=== PATIENT | male | born 1930 | race Caucasian/White ===

== ENCOUNTER 2018-08-31 15:58 | Emergency (ER) | payer MEDICARE, OTHER ==
[~2018-08-31] VITALS: Ht 177.8 cm; Wt 70.0 kg
[~2018-08-31 15:58] MED LIST: ACID REDUCER10 M1 PO; AMLODIPINE5 MG PO; ARICEPT ODT10 MG PO; BLOOD PRESSURE MED; COREG25 MG PO; DONEPEZIL5 MG PO; GLUCOSAMINE500 M1 PO; MEDDOSEPAK PO; NAPROXEN375 MG PO; ONDANSETRON4 MG PO; ZOSTAVAX IM; [UNRECOGNIZED DRUG - OTHER]
[2018-08-31 16:37] LABS: GFR > 60 ML/MIN (>=60 (CALC)); GFR FOR AFR.AMER. > 60 ML/MIN (>=60 (CALC))
[2018-08-31 17:05] LABS: HEMATOCRIT 46.2 % (39.0-50.0); HEMOGLOBIN 15.4 g/dl (14.0-18.0); IMMATURE GRANULOCYTES 0.3 % (0.0-5.0); MEAN CELL VOLUME 94.1 fL CALC (80.0-100.0); MEAN CORPUSCULAR HGB 31.4 pG CALC (26.0-32.0); MEAN CORPUSCULAR HGB CONC 33.3 g/L CALC (32.0-36.0); NEUT# 5.76 thou/uL (1.82-7.42); RED BLOOD COUNT 4.91 mill/uL (4.70-6.10)
[2018-08-31 17:10] LABS: ALBUMIN 4.6 g/dL (3.2-5.0); ALKALINE PHOSPHATASE 83 u/l (38-126); ANION GAP 15 (6-22 (CALC)); BUN 17 mg/dL (8-23); BUN/CREATININE RATIO 19 (12-20 (CALC)); CARBON DIOXIDE 23 mmol/l (22-30); CHLORIDE 106 mmol/l (95-108); CREATININE 0.9 mg/dL (0.7-1.3); GFR > 60 ML/MIN (>=60 (CALC)); GFR FOR AFR.AMER. > 60 ML/MIN (>=60 (CALC)); POTASSIUM 3.5 mmol/l (3.5-5.1); PROTHROMBIN TIME 10.7 SECONDS (9.0-12.5); SGOT/AST 26 u/l (19-48); SODIUM 140 mmol/l (137-146); TOTAL PROTEIN 7.1 g/dL (6.3-8.2)
[2018-08-31 17:11] LABS: BILIRUBIN, TOTAL 2.6 mg/dL (0.0-1.4)
[2018-08-31 17:22] LABS: MYOGLOBIN 50 ng/mL (0 - 121)
[2018-08-31 19:36] VITALS: BP 158/70
== END 2018-08-31 19:50 | disposition short-term general hospital (02) ==
LOC: ED 15:58
PROVIDERS: Emergency Medicine
DX: I63.9 Cerebral infarction, unspecified (principal); I10 Essential (primary) hypertension; R47.01 Aphasia; R47.1 Dysarthria and anarthria; R29.810 Facial weakness; R47.81 Slurred speech; R29.703 NIHSS score 3; Z86.73 Personal history of transient ischemic attack (TIA), and cerebral infarction without residual deficits; R94.31 Abnormal electrocardiogram [ECG] [EKG]
CPT/HCPCS: Q9967

== ENCOUNTER 2019-02-07 22:04 | Emergency (ER) | payer MEDICARE, OTHER ==
[~2019-02-07] VITALS: Ht 177.8 cm; Wt 70.5 kg
[2019-02-07 22:30] VITALS: BP 147/85
== END 2019-02-07 22:55 | disposition home or self-care (01) ==
LOC: ED 22:04
DX: I10 Essential (primary) hypertension (principal); Z86.73 Personal history of transient ischemic attack (TIA), and cerebral infarction without residual deficits

== ENCOUNTER 2019-04-02 16:01 | Emergency (ER) | payer MEDICARE, OTHER ==
[~2019-04-02] VITALS: Ht 177.8 cm; Wt 79.0 kg
[2019-04-02] MEDS ORDERED: AMOXICILLIN875 MG PO (17:15)
[2019-04-02] MEDS ORDERED: TAM75CAP PO (17:15)
[2019-04-02 17:50] VITALS: BP 137/68
== END 2019-04-02 17:50 | disposition home or self-care (01) ==
LOC: ED 16:01
DX: J10.1 Influenza due to other identified influenza virus with other respiratory manifestations (principal); I10 Essential (primary) hypertension; F03.90 Unspecified dementia, unspecified severity, without behavioral disturbance, psychotic disturbance, mood disturbance, and anxiety; Z86.73 Personal history of transient ischemic attack (TIA), and cerebral infarction without residual deficits

== ENCOUNTER 2019-07-01 16:50 | Observation (INO) | payer MEDICARE, OTHER ==
[~2019-07-01] VITALS: Ht 177.8 cm; Wt 77.0 kg
[~2019-07-01 16:50] MED LIST changes: +AMOXICILLIN875 MG PO; +TAM75CAP PO
[2019-07-01 17:22] VITALS: BP 125/57
--- NOTE | 2019-07-01 17:30 | NUR ---
DIRECT ADMIT ARRIVED VIA WHEELCHAIR ACCOMPANIED BY SPOUSE AND DAUGHTER, PATIENT ALERT WITH CONFUSION, A/OX2, PATIENT NO C/O PAIN, NO S/S RESP DISTRESS, PATIENT ON ROOM AIR, PATIENT VERY HARD OF HEARING, PATIENT INCONTINENT OF BLADDER AND BOWELS, PATIENT GIVEN PERICARE, PATIENT SKIN INTACT, PATIENT HAD LARGE BOWEL MOVEMENT, PATIENT HAD FALL IN SHOWER PER SPOUSE, PATIENT ON MONITOR PATIENT HEART NORMAL SINUS, WILL CONTINUE TO MONITOR, CALL LIGHT WITHIN REACH
[2019-07-01] MEDS ORDERED: AMLODIPINE BESYL5 MG PO (17:53)
[2019-07-01] MEDS ORDERED: CARVEDILOL6.25 MG PO (17:53)
[2019-07-01] MEDS ORDERED: LISINOP/HCTZ1 TA2 PO (17:54)
[2019-07-01 18:57] LABS: HEMATOCRIT 43.5 % (39.0-50.0); HEMOGLOBIN 14.5 g/dl (14.0-18.0); IMMATURE GRANULOCYTES 0.3 % (0.0-5.0); MEAN CELL VOLUME 93.1 fL CALC (80.0-100.0); MEAN CORPUSCULAR HGB CONC 33.3 g/L CALC (32.0-36.0); NEUT# 4.61 thou/uL (1.82-7.42); RED BLOOD COUNT 4.67 mill/uL (4.70-6.10); RED CELL DISTRI WIDTH 14.1 % (11.5-15.5)
[2019-07-01 18:58] LABS: URINE BILIRUBIN - DIPSTICK NEGATIVE (NEGATIVE); URINE BLOOD DIPSTICK NEGATIVE (NEGATIVE); URINE COLOR YELLOW; URINE GLUCOSE - DIPSTICK NEGATIVE (NEGATIVE); URINE KETONE NEGATIVE (NEGATIVE); URINE LEUK ESTERASE NEGATIVE (NEGATIVE); URINE NITRITE - DIPSTICK NEGATIVE (Negative); URINE PH 5.5 (4.5-8.0); URINE PROTEIN - DIPSTICK TRACE mg/dL (NEG-TRACE); URINE SPECIFIC GRAVITY >=1.030; URINE UROBILINOGEN - DIPSTICK 0.2 E.U./dL (0.2)
--- NOTE | 2019-07-01 19:00 | NUR ---
RECEIEVED REPORT FROM NURSE LUIS ARMANDO, PATIENT CURRENTLY RESTING IN BED, DENIES PAIN OR DISXCOMFORTS AT THIS TIME, CALL LIGHT AT REACH, BED ALARM IN PLACE
[2019-07-01 19:13] LABS: ALBUMIN 4.4 g/dL (3.2-5.0); ALKALINE PHOSPHATASE 100 u/l (38-126); ANION GAP 13 (6-22 (CALC)); BUN 33 mg/dL (8-23); BUN/CREATININE RATIO 34 (12-20 (CALC)); CARBON DIOXIDE 23 mmol/l (22-30); CHLORIDE 106 mmol/l (95-108); GFR > 60 ML/MIN (>=60 (CALC)); GFR FOR AFR.AMER. > 60 ML/MIN (>=60 (CALC)); POTASSIUM 3.7 mmol/l (3.5-5.1); SGOT/AST 28 u/l (19-48); SODIUM 139 mmol/l (137-146); TOTAL PROTEIN 7.4 g/dL (6.3-8.2)
[2019-07-01 19:16] LABS: BILIRUBIN, TOTAL 1.5 mg/dL (0.0-1.4)
[2019-07-01 19:27] VITALS: BP 121/66
--- NOTE | 2019-07-01 21:00 | NUR ---
PATIENT ALERT ORIENTED X 3, WITH SALINE LOCK ON RFA PATENT FLUSHES WELL, REMAINS ON TEL SB WITH IVCD 58, DENIES PAIN OR DISCOMFORTS AT THIS TIME, WITH EVEN UNLABORED BREATHING, ON BED ALARM CALL LIGHT AT REACH.
--- NOTE | 2019-07-01 23:53 | NUR ---
PATIENT APPEARS TO BE SLEEPING WITH EYES CLOSED, WITH EVEN UNLABORED BREATHING CALL LIGHT AT REACH.
[2019-07-02] VITALS (7 sets, daily range): BP systolic 96–141; BP diastolic 52–83
--- NOTE | 2019-07-02 00:18 | NUR ---
PATIENT REPOSITIONED, INCONTINENT CARE PROVIDED.
--- NOTE | 2019-07-02 04:04 | NUR ---
PATIENT APPEARS TO BE SLEEPING WITH EYES CLOSED, EVEN UNLABORED BREATHING CALL LIGHT AT REACH BED ALARM IN PLACE.
--- NOTE | 2019-07-02 07:00 | NUR ---
REPORT RECEIVED FROM ALEXA REYNOLDS;PT APPEARS TO BE SLEEPING IN SEMI FOWLERS POSITION;NO S/S OF DISTRESS NOTED;RESPIRATIONS EVEN AND UNLABORED ON RA;TELE MONITORING IN PLACE;IV FLUIDS INFUSING WITH EASE PER ORDER;ALL SAFETY PRECAUTIONS IN PLACE WITH BED ALARM ON FOR SAFETY AND BED IN THE LOWEST POSITION WITH CALL LIGHT IN REACH;WILL CONTINUE TO MONITOR
--- NOTE | 2019-07-02 08:45 | NUR ---
PT RESTING IN RECLINER,A&O X2;VS OBTAINED AND ASSESSMENT COMPLETED;PT DENIES ANY CURRENT PAIN OR DISCOMFORTS,PAIN SCALE AND REPORTING EDUCATED;RESPIRATIONS EVEN AND UNLABORED ON RA,CLEAR LUNG SOUNDS;ABDOMEN SOFT ON PALPATION AND ACTIVE IN ALL 4 QUADRANTS;STRONG PEDAL PULSES;SKIN INTACT;TELE MONITORING IN PLACE;#20G TO RFA INFUSING NS @ 75ML/HR,SITE APPEARS HEALTHY;PT DENIES ANY ADDITIONAL NEEDS AT THIS TIME AND IS ENCOURAGED TO CALL FOR ASSISTANCE IF NEEDED;FALL PRECAUTIONS IN PLACE WITH BED ALARM ON FOR SAFETY AND CALL LIGHT IN REACH;WILL CONTINUE TO MONITOR
--- NOTE | 2019-07-02 09:05 | NUR ---
AT BEDSIDE DISCUSSING POC.
--- NOTE | 2019-07-02 10:47 | NUR ---
OCCUPATIONAL THERAPY WORKING WITH PT.
--- NOTE | 2019-07-02 11:30 | NUR ---
PT REMAINS OOB RESTING IN RECLINER WATCHING TV;RESPIRATIONS EVEN AND UNLABORED ON RA;PT DENIES ANY CURRENT PAIN OR DISCOMFORTS;TELE MONITORING IN PLACE;IV FLUIDS CONTINUE AT 75ML/HR PER ORDER;ASSESSMENT REMAINS UNCHANGED AT THIS TIME;ENCOURAGED PT TO CALL FOR ASSISTANCE IF NEEDED;FALL PRECAUTIONS IN PLACE WITH BED ALARM ON FOR SAFETY;CALL LIGHT IN REACH;WILL CONTINUE TO MONITOR
--- NOTE | 2019-07-02 15:30 | NUR ---
PT RESTING IN SEMI FOWLERS POSITION;RESPIRATIONS REMAIN EVEN AND UNLABORED ON RA;PT DENIES ANY CURRENT PAIN OR NEEDS;TELE MONITORING IN PLACE;IV SITE PATENT INFUSING NS ORDER;PT ENCOURAGED TO CALL FOR ASSISTANCE IF NEEDED;BED REMAINS IN THE LOWEST POSITION WITH BED ALARM ON FOR SAFETY;CALL LIGHT IN REACH;WILL CONTINUE TO MONITOR
--- NOTE | 2019-07-02 19:00 | NUR ---
RECEIVED REPORT FROM NURSE VALDIVIA PATIENT RESTING IN BED, EVEN UNLABORED BREATHING CALL LIGHT AT REACH.
--- NOTE | 2019-07-02 21:00 | NUR ---
PATIENT RESTING IN BED, DAUGHTER IN ROOM, DENIES PAIN OR DISCOMFORT AT THIS TIME, WITH EVEN UNLABORED BREATHING, BED ALARM IN PLACE.
[2019-07-03] VITALS: BP 127/71
--- NOTE | 2019-07-03 00:20 | NUR ---
V/S TAKEN AT THIS TIME, INCONTINENT CARE PROVIDED.
[2019-07-03 04:29] VITALS: BP 117/66
--- NOTE | 2019-07-03 04:58 | NUR ---
INCONTINENT CARE PROVIDED, BM X 1 SOFT
[2019-07-03 05:01] LABS: MEAN CELL VOLUME 94.4 fL CALC (80.0-100.0); MEAN CORPUSCULAR HGB 30.9 pG CALC (26.0-32.0); MEAN CORPUSCULAR HGB CONC 32.7 g/L CALC (32.0-36.0); RED BLOOD COUNT 3.76 mill/uL (4.70-6.10)
[2019-07-03 05:04] LABS: HEMATOCRIT 35.5 % (39.0-50.0); HEMOGLOBIN 11.6 g/dl (14.0-18.0)
[2019-07-03 05:18] LABS: ANION GAP 8 (6-22 (CALC)); BUN 25 mg/dL (8-23); BUN/CREATININE RATIO 29 (12-20 (CALC)); CARBON DIOXIDE 22 mmol/l (22-30); CHLORIDE 110 mmol/l (95-108); CREATININE 0.9 mg/dL (0.7-1.3); GFR > 60 ML/MIN (>=60 (CALC)); GFR FOR AFR.AMER. > 60 ML/MIN (>=60 (CALC)); MAGNESIUM 2.1 mg/dL (1.6-2.3); POTASSIUM 3.4 mmol/l (3.5-5.1); SODIUM 137 mmol/l (137-146)
--- NOTE | 2019-07-03 06:50 | NUR ---
REPORT RECEIVED FROM SONA POTTS RN. PT RESTING IN BED WITH EYES CLOSED. NO S/S OF DISTRESS AT THIS TIME. SAFETY PRECAUTIONS IN PLACE. WILL CONTINEU TO MONITOR.
[2019-07-03 08:15] VITALS: BP 139/78
--- NOTE | 2019-07-03 08:15 | NUR ---
PT RESTING IN BED, ALERT AND ORIENTED. RESPIRATIONS EVEN AND UNLABORED ON RA, LUNGS SOUND CLEAR. PEDAL PULSES WEAK. PT DENIES ANY PAIN OR DISCOMFORT AT THIS TIME. TELE IN PLACE. #20 RFA APPEARS HEALTHY. CALL JOHNSON WITHIN REACH. WILL CONTINUE TO MONITOR.
--- NOTE | 2019-07-03 10:11 | NUR ---
S: I AM HAVING A BOWEL MOVEMENT." O: PATIENT IDENTIFIED BY NAME AND WITH PATIENT SUPINE IN BED. SUPINE -> SIT MIN A, SIT <-> STAND MIN A WITH VCS FOR PROPER HAND PLACEMENT/SAFETY. PATIENT USED R.W. 1 STEP TO RECLINER CHAIR WITH MIN A AND SAT TO PERFORM GROOMING WITH S AND VCS TO INITIATE AND COMPLETE COMBING HAIR, BRUSHING TEETH. PATIENT WASHED FACE WITH S. O.T. SET UP PT. FOR BATHING AND PATIENT PERFORMED FACE AND ARMS/AXILLA AND FRONTAL PERINEAL AREA WHILE STANDING WITH CG FROM O.T. AND ROLL UP MACHINE OPERATOR COMPLETED BATHING AND CLEANED BACK/BUTTOCKS AND PLACED ADULT PAD/GOWN ON PATIENT DUE TO B/B INCONTINENCE. O.T. PLACED SHOES ON PT. AND PATIENT WAS RECLINED IN CHAIR WITH ALARM AND CALL LIGHT IN LAP.
--- NOTE | 2019-07-03 10:37 | NUR ---
PT AMBULATING THE HALLS WITH PT
--- NOTE | 2019-07-03 10:55 | NUR ---
Pt was OOB in chair. He was without complaints. Sit to and from stand with min/mod assist x 1. Pt ambulated with RW 2 x 60' with CGA and verbal cues to take long step and lift feet. Posture was flexed and pt shuffled his feet. Sitting ex performed for LAQ/marching resisted hip abd and add 2x10 reps. Standing balance activities performed with min assist. Pt fearfull to stand without support but was able to for several secs. Pt returned to chair with alarm in place, bed tray infront for him and call marroquin in lap. [facility]
--- NOTE | 2019-07-03 11:06 | NUR ---
MD AT BEDSIDE DISCUSSING POC.
[2019-07-03 11:31] VITALS: BP 128/70
== END 2019-07-03 15:19 | disposition home health service (06) ==
LOC: MS2 16:50
PROVIDERS: Nurse Practitioner Family; ADMIT Internal Medicine; ATTEND Internal Medicine
DX: R53.1 Weakness (principal); R26.9 Unspecified abnormalities of gait and mobility; E86.0 Dehydration; E87.6 Hypokalemia; R73.9 Hyperglycemia, unspecified; I10 Essential (primary) hypertension; F03.90 Unspecified dementia, unspecified severity, without behavioral disturbance, psychotic disturbance, mood disturbance, and anxiety; Z86.73 Personal history of transient ischemic attack (TIA), and cerebral infarction without residual deficits; Z91.81 History of falling
CPT/HCPCS: G0378; G0379

== ENCOUNTER 2020-07-03 12:53 | Observation (INO) | payer MEDICARE ==
[~2020-07-03] VITALS: Ht 177.8 cm; Wt 73.0 kg
[~2020-07-03 12:53] MED LIST changes: +AMLODIPINE BESYL5 MG PO; +CARVEDILOL6.25 MG PO; +LISINOP/HCTZ1 TA2 PO
[2020-07-03 14:19] LABS: ALBUMIN 3.5 g/dL (3.2-5.0); ALKALINE PHOSPHATASE 73 u/l (38-126); AMYLASE 56 u/l (30-110); ANION GAP 8 (6-22 (CALC)); BILIRUBIN, TOTAL 1.3 mg/dL (0.0-1.4); BUN 40 mg/dL (8-23); BUN/CREATININE RATIO 25 (12-20 (CALC)); CARBON DIOXIDE 26 mmol/l (22-30); CHLORIDE 103 mmol/l (95-108); CREATININE 1.6 mg/dL (0.7-1.3); ETHYL ALCOHOL 0 mg/dl (0-30); GFR 41 ML/MIN (>=60 (CALC)); GFR FOR AFR.AMER. 49 ML/MIN (>=60 (CALC)); LIPASE 58 u/l (23-300); MAGNESIUM 2.1 mg/dL (1.6-2.3); POTASSIUM 3.7 mmol/l (3.5-5.1); SGOT/AST 20 u/l (19-48); SODIUM 134 mmol/l (137-146); TOTAL PROTEIN 6.1 g/dL (6.3-8.2)
[2020-07-03 14:20] LABS: HEMATOCRIT 35.2 % (39.0-50.0); HEMOGLOBIN 11.4 g/dl (14.0-18.0); IMMATURE GRANULOCYTES 0.2 % (0.0-5.0); MEAN CELL VOLUME 94.4 fL CALC (80.0-100.0); MEAN CORPUSCULAR HGB 30.6 pG CALC (26.0-32.0); MEAN CORPUSCULAR HGB CONC 32.4 g/dL CAL (32.0-36.0); NEUT# 3.52 thou/uL (1.82-7.42); RED BLOOD COUNT 3.73 mill/uL (4.70-6.10)
[2020-07-03 14:22] LABS: ACT PARTIAL THROMBO TIME 23.8 SECONDS (20.0-32.5); INTERNATIONAL NORMALIZED RATIO 1.1 RATIO (0.7-1.3)
[2020-07-03 14:23] LABS: D-DIMER 3.51 mg/L (0.19-0.60)
[2020-07-03 15:40] LABS: URINE BILIRUBIN - DIPSTICK NEGATIVE (NEGATIVE); URINE BLOOD DIPSTICK TRACE-LYSED (NEGATIVE); URINE COLOR YELLOW; URINE GLUCOSE - DIPSTICK NEGATIVE (NEGATIVE); URINE KETONE NEGATIVE (NEGATIVE); URINE LEUK ESTERASE NEGATIVE (NEGATIVE); URINE NITRITE - DIPSTICK NEGATIVE (Negative); URINE PH 5.5 (4.5-8.0); URINE PROTEIN - DIPSTICK TRACE mg/dL (NEG-TRACE); URINE UROBILINOGEN - DIPSTICK 0.2 E.U./dL (0.2)
[2020-07-03] MEDS ORDERED: CARVEDILOL6.25 MG PO (16:45)
[2020-07-03] MEDS ORDERED: LISINOP/HCTZ1 TA2 PO (16:47)
[2020-07-03] MEDS ORDERED: NORVASC5 M1 PO (16:47)
[2020-07-03 18:17] VITALS: BP 143/73
[2020-07-03 19:00] VITALS: BP 129/70
[2020-07-03 23:55] VITALS: BP 129/70
[2020-07-04 03:40] VITALS: BP 134/73
[2020-07-04 07:41] VITALS: BP 105/45
[2020-07-04 16:27] VITALS: BP 113/57
[2020-07-04 19:17] VITALS: BP 132/64
[2020-07-05 00:08] VITALS: BP 112/55
[2020-07-05 03:45] VITALS: BP 108/54
[2020-07-05 06:11] LABS: HEMATOCRIT 37.1 % (39.0-50.0); HEMOGLOBIN 12.2 g/dl (14.0-18.0); IMMATURE GRANULOCYTES 0.3 % (0.0-5.0); MEAN CELL VOLUME 93.7 fL CALC (80.0-100.0); MEAN CORPUSCULAR HGB 30.8 pG CALC (26.0-32.0); MEAN CORPUSCULAR HGB CONC 32.9 g/dL CAL (32.0-36.0); NEUT# 2.32 thou/uL (1.82-7.42); RED BLOOD COUNT 3.96 mill/uL (4.70-6.10); RED CELL DISTRI WIDTH 12.9 % (11.5-15.5)
[2020-07-05 06:22] LABS: ALBUMIN 3.2 g/dL (3.2-5.0); ALKALINE PHOSPHATASE 95 u/l (38-126); ANION GAP 12 (6-22 (CALC)); BUN 21 mg/dL (8-23); BUN/CREATININE RATIO 23 (12-20 (CALC)); CARBON DIOXIDE 21 mmol/l (22-30); CHLORIDE 107 mmol/l (95-108); CREATININE 0.9 mg/dL (0.7-1.3); GFR > 60 ML/MIN (>=60 (CALC)); GFR FOR AFR.AMER. > 60 ML/MIN (>=60 (CALC)); POTASSIUM 3.4 mmol/l (3.5-5.1); SGOT/AST 20 u/l (19-48); SODIUM 136 mmol/l (137-146); TOTAL PROTEIN 5.5 g/dL (6.3-8.2)
[2020-07-05 07:29] VITALS: BP 133/66
[2020-07-05 10:25] VITALS: BP 120/64
== END 2020-07-05 13:55 | disposition home health service (06) ==
LOC: ED 12:53 → ED-I 15:35 → ED 15:54 → MS2 15:55
PROVIDERS: Physician Assistant; ADMIT Internal Medicine; ATTEND Internal Medicine
DX: E86.0 Dehydration (principal); R00.1 Bradycardia, unspecified; I95.9 Hypotension, unspecified; N17.9 Acute kidney failure, unspecified; I10 Essential (primary) hypertension; F03.90 Unspecified dementia, unspecified severity, without behavioral disturbance, psychotic disturbance, mood disturbance, and anxiety; Z86.73 Personal history of transient ischemic attack (TIA), and cerebral infarction without residual deficits; Z20.822 Contact with and (suspected) exposure to COVID-19
CPT/HCPCS: J1650

== ENCOUNTER 2020-08-19 10:29 | Observation (INO) | payer MEDICARE ==
[~2020-08-19] VITALS: Ht 177.8 cm; Wt 67.0 kg
[~2020-08-19 10:29] MED LIST changes: +NORVASC5 M1 PO
--- NOTE | 2020-08-19 10:31 | NUR ---
PT TO RM 14 VIA W/C FOR B/S TRIAGE. AT B/S.
[2020-08-19 11:19] LABS: IMMATURE GRANULOCYTES 0.4 % (0.0-5.0); MEAN CELL VOLUME 95.9 fL CALC (80.0-100.0); MEAN CORPUSCULAR HGB 30.5 pG CALC (26.0-32.0); MEAN CORPUSCULAR HGB CONC 31.8 g/dL CAL (32.0-36.0); NEUT# 4.17 thou/uL (1.82-7.42); RED BLOOD COUNT 4.59 mill/uL (4.70-6.10); RED CELL DISTRI WIDTH 13.3 % (11.5-15.5)
[2020-08-19 11:36] LABS: ALKALINE PHOSPHATASE 111 u/l (38-126); BILIRUBIN, TOTAL 1.4 mg/dL (0.0-1.4); BUN 21 mg/dL (8-23); BUN/CREATININE RATIO 24 (12-20 (CALC)); CHLORIDE 102 mmol/l (95-108); CREATININE 0.9 mg/dL (0.7-1.3); GFR > 60 ML/MIN (>=60 (CALC)); GFR FOR AFR.AMER. > 60 ML/MIN (>=60 (CALC)); LIPASE 54 u/l (23-300); POTASSIUM 3.5 mmol/l (3.5-5.1); SGOT/AST 26 u/l (19-48); SODIUM 136 mmol/l (137-146)
[2020-08-19 11:44] LABS: ACT PARTIAL THROMBO TIME 29.5 SECONDS (20.0-32.5); INTERNATIONAL NORMALIZED RATIO 1.1 RATIO (0.7-1.3); PROTHROMBIN TIME 10.7 SECONDS (9.0-12.5)
[2020-08-19 11:45] LABS: ANION GAP 11 (6-22 (CALC)); CARBON DIOXIDE 27 mmol/l (22-30)
--- NOTE | 2020-08-19 12:42 | NUR ---
SBAR PRINTED TO FLOOR
--- NOTE | 2020-08-19 13:30 | NUR ---
FAMILY WENT HOME. PT RESTING IN ROOM.
--- NOTE | 2020-08-19 14:19 | NUR ---
REPORT CALLED TO FLOOR.
[2020-08-19 14:34] VITALS: BP 168/87
--- NOTE | 2020-08-19 14:34 | NUR ---
PATIENT RECEIVED FROM ED AT THIS TIME. PATIENT ALERT AND ORIENTED X 2 PATIENT DENIES ANY PAIN AT THIS TIME. GLASS CUTTING MACHINE FEEDER DONE AT THIS TIME. PATIENT LUNG MARES ARE CLEAR THOUGHOUT AND BOWEL SOUNDS ARE PRESENT IN ALL FOUR QUADRANTS. PATIENT EXHIBITS COOL DRY SCALY SKIN ESPEICALLY IN BILATERAL LEGS. NO EVIDIENCE OF SWELLING NOTED AT THIS TIME. BUTTUCKS SLIGHTLY RICKI DUE TO LAYING ON STRETCHER IN ED AND MEPITEL PLACED FOR COMFORT. PATIENT RECEIVED SAFETY ORIENTATION AND SHOWN HOW TO USE CALL LIGHT. PATIENT VERBALIZES UNDERSTANDING OF ROOM ORIENTATION. PATIENT DOES PRESENT WITH GLASS AND PATIENT IS HARD OF HEARING AND HAS BOTTOM LOWER DENTAL PLACE. SIDERAILS ARE UP CALL LIGHT IS WITHIN REACH.
--- NOTE | 2020-08-19 16:18 | NUR ---
PATIENT RESTING IN BED WITH EYES CLOSED AT THIS TIME. RESPIRATION EASY AND UNLABORED. SIDERAILS ARE UP CALL LIGHT IS WITHIN REACH AT THIS TIME.
[2020-08-19 19:00] VITALS: BP 154/85
--- NOTE | 2020-08-19 21:00 | NUR ---
PHYSICAL ASSESMENT COMPLETE. SCHEDULED MEDICATIONS ADMINISTERED. PLAN OF CARE REVIEWED, PT VERBALIZES UNDERSTANDING. PT DENIES NEEDS AT THIS TIME. CALL JOHNSON WITHIN REACH, AGREES TO CALL PRN. BED LOCKED IN LOW POSITION WITH BEDRAILS UP X2 AND BED ALARM ON.
--- NOTE | 2020-08-20 | NUR ---
PT LAYING IN BED WITH EYES CLOSED, NO APPARENT DISTRESS, RESPIRATIONS REGULAR AND UNLABORED. APPEARS TO BE SLEEPING COMFORTABLY. CALL JOHNSON REMAINS WITHIN REACH.
[2020-08-20 04:00] VITALS: BP 141/74
--- NOTE | 2020-08-20 04:15 | NUR ---
LYNN ASSEMBLER [employer] PLANT IN ROOM TO DRAW AM LABS.
[2020-08-20 05:39] LABS: HEMATOCRIT 39.2 % (39.0-50.0); HEMOGLOBIN 12.7 g/dl (14.0-18.0); MEAN CELL VOLUME 94.7 fL CALC (80.0-100.0); MEAN CORPUSCULAR HGB 30.7 pG CALC (26.0-32.0); MEAN CORPUSCULAR HGB CONC 32.4 g/dL CAL (32.0-36.0); RED BLOOD COUNT 4.14 mill/uL (4.70-6.10); RED CELL DISTRI WIDTH 13.3 % (11.5-15.5)
[2020-08-20 06:02] LABS: ANION GAP 8 (6-22 (CALC)); BUN 18 mg/dL (8-23); BUN/CREATININE RATIO 24 (12-20 (CALC)); CALCULATED LDLCHOLESTEROL 117 mg/dL (62-129 (CALC)); CARBON DIOXIDE 27 mmol/l (22-30); CHLORIDE 104 mmol/l (95-108); CHOLESTEROL HDL RATIO 4.2 (<4.4 (CALC)); CREATININE 0.7 mg/dL (0.7-1.3); GFR > 60 ML/MIN (>=60 (CALC)); GFR FOR AFR.AMER. > 60 ML/MIN (>=60 (CALC)); HDL CHOLESTEROL 44 mg/dL (>=40); MAGNESIUM 2.1 mg/dL (1.6-2.3); POTASSIUM 3.6 mmol/l (3.5-5.1); SODIUM 135 mmol/l (137-146); TOTAL CHOLESTEROL 184 mg/dl (0-199); TOTAL TRIGLYCERIDES 121 mg/dl (30-149); VLDL CHOLESTROL 24 mg/dl (0-38 (CALC))
[2020-08-20 07:15] VITALS: BP 156/69
--- NOTE | 2020-08-20 07:30 | NUR ---
PAITENT LAYING IN BED AT THIS TIME. PAITENT ALERT AND ORIENTED X 2 NO COMPLAINT OF PAIN AT THIS TIME. SIDERAILS ARE UP X 3 CALL LIGHT WITHIN REACH MACERATOR OPERATOR DONE SEE INTERVENTIONS.
--- NOTE | 2020-08-20 11:34 | NUR ---
PATIENT IN BED AT THIS TIME GETTING A BED BATH BY GERIATRIC PSYCHIATRIST. SIDERAILS ARE UP PATIENT DENIES ANY PAIN AT THIS TIME. CALL LIGHT IS WITHIN REACH.
[2020-08-20 14:45] VITALS: BP 169/81
[2020-08-20] MEDS ORDERED: ASPIRIN EC LOW81 MG PO (15:32)
--- NOTE | 2020-08-20 16:17 | NUR ---
PATIENT UP IN CHAIR AT THIS TIME WITH AT BEDSIDE. PATIENT DENIES ANY NEEDS CALL LIGHT WITHIN REACH.
--- NOTE | 2020-08-20 19:00 | NUR ---
REPORT RECEIVED FROM Juan RODRIGUEZ RN. CARE OF PT ASSUMED AT THIS TIME.
[2020-08-20 19:10] VITALS: BP 156/76
--- NOTE | 2020-08-21 00:15 | NUR ---
PT LAYING IN BED WITH EYES CLOSED, NO APPARENT DISTRESS, RESPIRATIONS REGULAR AND UNLABORED. APPEARS TO BE SLEEPING COMFORTABLY. CALL JOHNSON REMAINS WITHIN REACH.
--- NOTE | 2020-08-21 04:15 | NUR ---
EMILIANO, SHOE CUTTER IN ROOM TO DRAW AM LABS.
[2020-08-21 04:29] VITALS: BP 178/77
[2020-08-21 06:41] LABS: URINE BILIRUBIN - DIPSTICK NEGATIVE (NEGATIVE); URINE BLOOD DIPSTICK SMALL (NEGATIVE); URINE COLOR YELLOW; URINE GLUCOSE - DIPSTICK NEGATIVE (NEGATIVE); URINE KETONE NEGATIVE (NEGATIVE); URINE PROTEIN - DIPSTICK NEGATIVE (NEG-TRACE)
[2020-08-21 06:42] LABS: URINE LEUK ESTERASE NEGATIVE (NEGATIVE); URINE NITRITE - DIPSTICK NEGATIVE (Negative)
[2020-08-21 06:43] LABS: HEMATOCRIT 39.8 % (39.0-50.0); HEMOGLOBIN 12.7 g/dl (14.0-18.0); MEAN CELL VOLUME 96.1 fL CALC (80.0-100.0); MEAN CORPUSCULAR HGB 30.7 pG CALC (26.0-32.0); MEAN CORPUSCULAR HGB CONC 31.9 g/dL CAL (32.0-36.0); RED BLOOD COUNT 4.14 mill/uL (4.70-6.10); RED CELL DISTRI WIDTH 13.2 % (11.5-15.5)
[2020-08-21 06:46] LABS: URINE BACTERIA FEW hpf; URINE EPITHELIAL CELLS FEW EPI/hpf (0-FEW)
[2020-08-21 06:47] LABS: URINE CALCIUM OXALATE CRYSTALS FEW lpf
[2020-08-21 07:06] LABS: ANION GAP 7 (6-22 (CALC)); BUN 16 mg/dL (8-23); BUN/CREATININE RATIO 20 (12-20 (CALC)); CARBON DIOXIDE 30 mmol/l (22-30); CHLORIDE 101 mmol/l (95-108); CREATININE 0.8 mg/dL (0.7-1.3); GFR > 60 ML/MIN (>=60 (CALC)); GFR FOR AFR.AMER. > 60 ML/MIN (>=60 (CALC)); MAGNESIUM 2.2 mg/dL (1.6-2.3); POTASSIUM 3.5 mmol/l (3.5-5.1); SODIUM 135 mmol/l (137-146)
[2020-08-21 07:18] VITALS: BP 166/66
--- NOTE | 2020-08-21 10:34 | NUR ---
PT AWAKE, ALERT, [place], FORGETFUL. LUNGS CLEAR, RA. PT ABLE TO FEED HIMSELF BREAKFAST. NAD.
[2020-08-21 10:50] VITALS: BP 166/78
[2020-08-21 14:50] VITALS: BP 146/78
--- NOTE | 2020-08-21 14:51 | NUR ---
PT CALLS OUT FOR NURSE WHEN WALKING IN [place], BUT DOES NOT ALWAYS KNOW WHY. CONDITION STABLE HE RESTS IN THE BED.
--- NOTE | 2020-08-21 18:04 | NUR ---
PT'S HAS REMAINED AT BEDSIDE TODAY, TALKATIVE. PT ASSISTED BACK TO BED FROM CHAIR, SEEN STIFF. PT FEEDS HIMSELF SUPPER WITHOUT A PROBLEM.
[2020-08-21 19:51] VITALS: BP 155/94
--- NOTE | 2020-08-21 21:05 | NUR ---
PHYSICAL ASSESMENT COMPLETE. PT CURRENTLY DENIES PAIN OR DISCOMFORT. SCHEDULED MEDICATIONS AND PRN MEDICATION ADMINISTERED, SEE E-MAR. PT DENIES ANY NEEDS AT THIS TIME. PLAN OF CARE REVIEWED, PT DENIES QUESTIONS, VERBALIZES UNDERSTANDING. ITEMS WITHIN REACH, BED LOCKED IN LOW POSITION W/ BEDRAILS UP X2. CALL JOHNSON WITHIN REACH, AGREES TO CALL PRN.
--- NOTE | 2020-08-22 | NUR ---
PT LAYING IN BED WITH EYES CLOSED, APPEARS TO BE SLEEPING, APPEARS COMFORTABLE AND IN NO DISTRESS. RESPIRATIONS REGULAR AND UNLABORED. ITEMS REMAIN WITHIN REACH, CALL JOHNSON REMAINS WITHIN REACH. BED REMAINS LOCKED AND IN LOW POSITION WITH BEDRAILS UP X2. WILL CONTINUE TO MONITOR.
[2020-08-22 03:31] VITALS: BP 186/84
[2020-08-22 05:41] LABS: HEMATOCRIT 40.2 % (39.0-50.0); HEMOGLOBIN 12.7 g/dl (14.0-18.0); MEAN CELL VOLUME 95.7 fL CALC (80.0-100.0); MEAN CORPUSCULAR HGB 30.2 pG CALC (26.0-32.0); MEAN CORPUSCULAR HGB CONC 31.6 g/dL CAL (32.0-36.0); RED BLOOD COUNT 4.2 mill/uL (4.70-6.10); RED CELL DISTRI WIDTH 13.2 % (11.5-15.5)
[2020-08-22 06:03] LABS: ANION GAP 7 (6-22 (CALC)); BUN 16 mg/dL (8-23); BUN/CREATININE RATIO 24 (12-20 (CALC)); CARBON DIOXIDE 28 mmol/l (22-30); CHLORIDE 102 mmol/l (95-108); CREATININE 0.7 mg/dL (0.7-1.3); GFR > 60 ML/MIN (>=60 (CALC)); GFR FOR AFR.AMER. > 60 ML/MIN (>=60 (CALC)); SODIUM 133 mmol/l (137-146)
[2020-08-22 07:37] VITALS: BP 169/86
--- NOTE | 2020-08-22 08:16 | NUR ---
PT OOB IN CHAIR FOR BREAKFAST, FEEDS HIMSELF. NO DISTRESS, AWARE OF PROBABLE TRANSFER TO [facility] TODAY.
[2020-08-22 14:13] VITALS: BP 155/75
--- NOTE | 2020-08-22 16:27 | NUR ---
PT BACK TO BED AFTER SPENDING A COUPLE OF HOURS IN THE CHAIR. PT AWARE OF PENDING TRANSFER TO REHAB ON MONDAY.
[2020-08-22 19:22] VITALS: BP 168/92
[2020-08-23 03:15] VITALS: BP 185/89
--- NOTE | 2020-08-23 04:00 | NUR ---
PT RESTING IN BED, NO SIGNS OF DISTRESS NOTED, RESP EVEN AND UNLABORED. PT VOICES NO NEEDS OR COMPLAINTS AT THIS TIME. CALL LIGHT IN REACH, CONTINUE TO MONITOR.
[2020-08-23 07:13] VITALS: BP 139/79
--- NOTE | 2020-08-23 07:56 | NUR ---
PT ASSISTED OOB INTO CHAIR AT BEDSIDE FOR BREAKFAST. PT REMAINS STIFF WITH MOVEMENT. NO DISTRESS NOTED.
--- NOTE | 2020-08-23 12:30 | NUR ---
PT OOB IN CHAIR FOR 2 HOURS THIS MORNING, THEN REQUESTED TO GO BACK TO BED. PT WITHOUT EVIDENCE OF DISTRESS, NO COMPLAINTS.
--- NOTE | 2020-08-23 13:25 | NUR ---
SUPPOSITORY PLACED AT THIS TIME PER NO RECORDED BM SINCE ARRIVAL TO HOSPITAL. PT TOLERATED WELL.
[2020-08-23 15:45] VITALS: BP 174/80
--- NOTE | 2020-08-23 18:00 | NUR ---
CHRIS AT BEDSIDE, PT UP IN CHAIR AT THIS TIME. PT DID HAVE MODERATE BM TODAY AFTER SEVERAL LAXATIVES OVER 2 DAYS.
[2020-08-23 19:00] VITALS: BP 138/73
[2020-08-24 04:40] VITALS: BP 158/85
[2020-08-24 05:45] LABS: HEMATOCRIT 41.2 % (39.0-50.0); HEMOGLOBIN 13.1 g/dl (14.0-18.0); MEAN CORPUSCULAR HGB 30.5 pG CALC (26.0-32.0); MEAN CORPUSCULAR HGB CONC 31.8 g/dL CAL (32.0-36.0); RED BLOOD COUNT 4.29 mill/uL (4.70-6.10); RED CELL DISTRI WIDTH 13.3 % (11.5-15.5)
[2020-08-24 06:08] LABS: ANION GAP 8 (6-22 (CALC)); BUN 22 mg/dL (8-23); BUN/CREATININE RATIO 31 (12-20 (CALC)); CARBON DIOXIDE 27 mmol/l (22-30); CHLORIDE 104 mmol/l (95-108); CREATININE 0.7 mg/dL (0.7-1.3); GFR > 60 ML/MIN (>=60 (CALC)); GFR FOR AFR.AMER. > 60 ML/MIN (>=60 (CALC)); MAGNESIUM 2.6 mg/dL (1.6-2.3); POTASSIUM 3.9 mmol/l (3.5-5.1); SODIUM 135 mmol/l (137-146)
[2020-08-24 07:15] VITALS: BP 172/90
--- NOTE | 2020-08-24 07:50 | NUR ---
ASSESSMENT IS COMPLTED: IV SITE IS FREE FROM REDNESS OR EDEMA. HR IS REG,PULSES ARE STRONG X4, ABD IS SOFT WITH ACTIVE BS. BREATH SOUNDS ARE CLEAR, BILATERALLY. CONTINUE TO OSBERVE AND MONITOR.
--- NOTE | 2020-08-24 11:29 | NUR ---
PT HAS WALKED WITH PHYSICAL THERAPY.
--- NOTE | 2020-08-24 12:00 | NUR ---
PT WAS SHAVED, BY STAFF. NO DISTRESS NOTED.
--- NOTE | 2020-08-24 12:15 | NUR ---
PT IS RELAXING IN BED WITH NO DISTRESS NOTED. IV SITE IS FREE FROM REDNESS OR EDEMA.
--- NOTE | 2020-08-24 14:00 | NUR ---
PT REQUESTED TO GET OUT OF BED AND INTO THE CHAIR. , THEN CALLED IN 20 MINUTES AND ASKED IF HE COULD GO BACK TO BED. INSTRUCTED TO STAY UP FOR A BIT LONGER
[2020-08-24 14:46] VITALS: BP 142/77
[2020-08-24 19:00] VITALS: BP 143/79
--- NOTE | 2020-08-24 20:00 | NUR ---
PATIENT SITTING UP IN BED WATCHING TV AT THIS TIME. AWAKE ALERT AND ORIENTED TO PERSON AND PLACE. FORGETFUL NEEDS REINFORCEMENT. IV SITE TO LEFT FOREARM WITH IVF NS PATENT AND INFUSING ORDERED. NO COMPLAINTS AT THIS TIME. SAFETY PRECAUTIONS REINFORCED. CALL LIGHT IN REACH. WILL CONT TO MONITOR.
--- NOTE | 2020-08-25 01:06 | NUR ---
PATIENT INCONT OF LARGE AMT OF URINE AND ALSO BM-PERICARE WAS GIVEN WITH SOAP AND WATER. TURNED AND REPOSITIONED IN BED. NO COMPLAINTS AT THIS TIME. CALL LIGHT IN REACH. WILL CONT TO MONITOR.
[2020-08-25 04:00] VITALS: BP 155/79
--- NOTE | 2020-08-25 05:05 | NUR ---
PATIENT RESTING IN BED AT THIS TIME-EYES ARE CLOSED. RESPS ARE EVEN AND UNLABORED. IVF PATENT AND INFUSING VIA LEFT FOREARM ORDERED. CALL LIGHT IN REACH. WILL CONT TO MONITOR.
--- NOTE | 2020-08-25 07:25 | NUR ---
ASSESSMENT IS COMPLETED: IV SITE IS FREE FROM REDNESS OR EDEMA. HR IS REG,PULSES ARE STRONG X4, ABD IS SOFT WITH ACTIVE BS., BREATH SOUNDS ARE CLEAR,BILATERALLY. CONTINUE TO OBSERVE AND MONITOR.
[2020-08-25 07:40] VITALS: BP 188/91
[2020-08-25 09:00] VITALS: BP 147/82
--- NOTE | 2020-08-25 11:17 | NUR ---
PT IM TO VISIT WITH PT.
--- NOTE | 2020-08-25 12:00 | NUR ---
PT IS RELAXING IN BED WITH NO DISTRESS NOTED. IV SITE IS FREE FROM REDNESS OR EDEMA.
[2020-08-25 15:03] VITALS: BP 172/83
--- NOTE | 2020-08-25 17:10 | NUR ---
PT'S STATED" THE REHAB CALLED ME TODAY AND SAID THEY TAKE HIS INSURANCE." EXPLAINED WE ARE WAITING ON THE INSURANCE TO SAY YES OR NO . POSSIBLY TOMORROW FROM WHAT THE SPOUSE IS STATING.
[2020-08-25 18:51] VITALS: BP 157/86
--- NOTE | 2020-08-25 19:30 | NUR ---
PATIENT RESTING IN BED POSITIONED ON RIGHT SIDE WITH EYES CLOSED. RESPS ARE EVEN AND UNLABORED. IVF PATENT AND INFUSING VIA LEFT FOREARM SITE. CALL LIGHT IN REACH. WILL CONT TO MONITOR.
--- NOTE | 2020-08-25 21:48 | NUR ---
RESTING IN BED-PATIENT INCONT OF MODERATE AMT OF BROWN STOOL AND URINE. PERICARE WITH SOAP WATER DONE. TURNED AND REPOSITIONED. MOM HELD FOR MULTIPLE STOOLS TODAY. IVF NS PATENT AND INFUSING ORDERED VIA LEFT FOREARM SITE. SAFETY PRECAUTIONS REINFORCED. CALL LIGHT IN REACH. WILL CONT TO MONITOR.
--- NOTE | 2020-08-25 23:39 | NUR ---
PATIENT POSITIONED ON LEFT SIDE WITH EYES CLOSED. RESPS ARE EVEN AND UNLABORED. IVF PATENT AND INFUSING VIA LEFT FOREARM SITE ORDERED. CALL LIGHT IN REACH. WILL CONT TO MONITOR.
[2020-08-26 04:00] VITALS: BP 139/69
[2020-08-26 05:46] LABS: HEMOGLOBIN 12.5 g/dl (14.0-18.0); MEAN CELL VOLUME 98.8 fL CALC (80.0-100.0); MEAN CORPUSCULAR HGB 30.9 pG CALC (26.0-32.0); MEAN CORPUSCULAR HGB CONC 31.3 g/dL CAL (32.0-36.0); RED BLOOD COUNT 4.05 mill/uL (4.70-6.10); RED CELL DISTRI WIDTH 13.2 % (11.5-15.5)
[2020-08-26 06:02] LABS: ANION GAP 8 (6-22 (CALC)); BUN 26 mg/dL (8-23); BUN/CREATININE RATIO 31 (12-20 (CALC)); CARBON DIOXIDE 26 mmol/l (22-30); CHLORIDE 107 mmol/l (95-108); CREATININE 0.8 mg/dL (0.7-1.3); GFR > 60 ML/MIN (>=60 (CALC)); GFR FOR AFR.AMER. > 60 ML/MIN (>=60 (CALC)); MAGNESIUM 2.4 mg/dL (1.6-2.3); POTASSIUM 4.5 mmol/l (3.5-5.1); SODIUM 136 mmol/l (137-146)
[2020-08-26 07:25] VITALS: BP 182/86
[2020-08-26 08:42] VITALS: BP 182/86
--- NOTE | 2020-08-26 09:52 | NUR ---
PT SEEN AWAKE, ALERT, ORIENTED X 1-2. LUNGS CLEAR, RA. PT ASSISTED OOB INTO CHAIR FOR BREAKFAST, CURRENTLY PHYSICAL THERAPIST IN ROOM. PT INCONTINENT OF BOWEL AND BLADDER, CLEANED NEEDED.
[2020-08-26] MEDS ORDERED: LISINOPRIL20 M1 PO (12:12)
[2020-08-26] MEDS ORDERED: NORVASC5 M1 PO (12:14)
[2020-08-26] MEDS ORDERED: AMLODIPINE BESYL5 MG PO (12:14)
--- NOTE | 2020-08-26 12:19 | NUR ---
PT AND AWARE OF PENDING DISCHARGE TO [facility] IN [place] THIS AFTERNOON. PT SEEN STABLE, NO DISTRESS, BACK IN BED NOW, HAS EATEN LUNCH.
--- NOTE | 2020-08-26 13:09 | NUR ---
AT BEDSIDE. MEDS FROM PHARMACY RETURNED TO [facility], [id number].
--- NOTE | 2020-08-26 14:11 | NUR ---
1345 PT FACE SHAVED, LOTION APPLIED.
--- NOTE | 2020-08-26 16:00 | NUR ---
PT LEAVES BY WHEELCHAIR FOR REHAB, CONDITION STABLE.
== END 2020-08-26 15:52 ==
LOC: ED 10:29 → ED-I 12:27 → ED 13:06 → MS2 13:07
PROVIDERS: Nurse Practitioner; ADMIT Internal Medicine; ATTEND Internal Medicine
DX: R53.1 Weakness (principal); R62.7 Adult failure to thrive; I10 Essential (primary) hypertension; F03.90 Unspecified dementia, unspecified severity, without behavioral disturbance, psychotic disturbance, mood disturbance, and anxiety; K56.41 Fecal impaction; R00.1 Bradycardia, unspecified; R55 Syncope and collapse; G31.9 Degenerative disease of nervous system, unspecified; Z86.73 Personal history of transient ischemic attack (TIA), and cerebral infarction without residual deficits; Z91.81 History of falling; Z68.21 Body mass index [BMI] 21.0-21.9, adult; Z20.822 Contact with and (suspected) exposure to COVID-19
CPT/HCPCS: G0378; J1650